=== PATIENT | female | born 1985 | race Caucasian/White ===

== ENCOUNTER 2025-02-09 01:42 | Observation (INO) | payer MEDICAID ==
[~2025-02-09] VITALS: Ht 165.1 cm; Wt 104.8 kg
[2025-02-09] MEDS ORDERED: ONDANSETRON ODT 4 MG TAB PO ONE (02:30)
[2025-02-09] MEDS ORDERED: LOPERAMIDE HCL 2 MG CAP/TAB PO ONE (02:30)
--- NOTE | 2025-02-09 02:43 | DVHDS2 ---
Physician Discharge Progress N Final Diagnosis: Nausea/Vomiting Early labor Operations or Procedures: Operations or Procedures Subjective Zoevanda Coats is a 39 yo at 39w4d presenting for nausea, vomiting, and diarrhea. Patient was unpacking some things in her home and started feeling nausea at 0000. When she went to the bathroom, she had liquid stool several times. Feels some uterine contractions, denies vaginal bleeding, denies leaking fluid, and states positive movement OB Hx: PNC in [place] x2, no complications Review of Systems: Neuro: mild nausea Heart: no complaints Lungs: no complaints Abdomen: slight cramping. diarrhea : No complaints Objective VSS FHR: Baseline: 125 Variability: Moderate Accelerations: Present Decelerations: Absent Category 1 tracing UCs: q1-6 min Assessment -IUP at 39w4d -Nausea/Vomiting Plan -IV started to hydrate patient with 1000mL LR. IV zofran given. Patient states she feels much better -Discussed early labor and ways to alleviate discomfort at home -Reviewed labor precautions and kick counts. Answered all patient questions and concerns. Condition on Discharge: Good Disposition: Home Discharge Instructions: Diet: Regular Activity: No Restrictions, As Tolerated Medications: See med list. No change Follow Up Care: Specialist: Patient currently on waitlist for induction at [facility] Discharge Statement: "Patient was advised to return to the ER or call 911 if any headaches, dizziness, shortness of breath, chest pain, abdominal pain, bleeding, fevers, or worsening of medical condition. Patient was counseled about treatment plan, medications, possible side effects, patientverbalized understanding. All questions were answered to the best of my ability. This discharge took greater then 30 minutes in planning, reviewing documentation, counseling the patient, and discussing with other team members." Visit Coding OBGYN Date of Service: Feb 09, 2025 Billing Provider: ELVIA BREWER CNM [facility] Common Visit Codes: 06120-[id number] INP/OBS CARE (HIGH) [facility] Procedure Codes: 38163-65- NON-STRESS TEST ELVIA BREWER CNM Feb 09, 2025 02:43
[2025-02-09] MEDS: LACTATED RINGER'S 1,000 ML IV ONE (03:16)
[2025-02-09] MEDS: ONDANSETRON HCL 4 MG/2 ML VIAL IV ONE (03:17)
[2025-02-09] MEDS ORDERED: PREN-96 PO (04:00)
[2025-02-09] MEDS ORDERED: FERR1TAB31 PO (04:00)
[2025-02-09] MEDS ORDERED: FERR1TAB36 PO (04:01)
== END 2025-02-09 04:16 | disposition home or self-care (01) ==
LOC: LDRP 01:42
PROVIDERS: ADMIT Obstetrics & Gynecology; ATTEND Obstetrics & Gynecology
DX: O60.03 Preterm labor without delivery, third trimester (principal); O21.2 Late vomiting of pregnancy; O26.893 Other specified pregnancy related conditions, third trimester; R19.7 Diarrhea, unspecified; R10.9 Unspecified abdominal pain; Z3A.39 39 weeks gestation of pregnancy
CPT/HCPCS: 59025; 81002; 94760; 96361; 96374; G0378; J2405; 96360; 96366